=== PATIENT | male | born 2000 | race Two or more races ===

== ENCOUNTER 2020-12-24 20:30 | Inpatient (IN) | payer OTHER ==
[2020-12-24 20:38] VITALS: BMI 33.4
[2020-12-24] MEDS ORDERED: LACTATED RINGERS SOLUTION 1000 ML INFUS.BAG IV ONE (21:02)
[2020-12-24 21:23] LABS: BASO % 0.6 % (0-2.0); EOS % 3.5 % (0-4.5); HEMATOCRIT 44.5 % (35.4-49); HEMOGLOBIN 15.3 GM/dL (11.7-16.9); LYMPH % 22.2 % (8-40); MCH 29.7 pg (25.7-33.7); MCHC 34.4 g/dl (32.0-35.9); MEAN CELL VOLUME 86.3 fl (80-96); MEAN PLT VOLUME 8.2 fl (7.5-11.1); MONO % 6.6 % (3.8-10.2); NEUT % 67.1 % (42.8-82.8); PLATELET COUNT 365 K/MM3 (134-434); RBC 5.16 M/mm3 (4.00-5.60); RDW 13.3 % (11.9-15.9); WHITE BLOOD COUNT 9.6 K/mm3 (4.0-10.0)
[2020-12-24 21:47] LABS: CHLORIDE 104 mmol/L (98-107); SODIUM 136 mmol/L (136-145)
[2020-12-24 21:52] LABS: CALCIUM 9.2 mg/dL (8.5-10.1)
[2020-12-24 21:53] LABS: ANION GAP 6 MMOL/L (8-16); BLOOD UREA NITROGEN 13.2 mg/dL (7-18); CO2 27 mmol/L (21-32); GLUCOSE,RANDOM 90 mg/dL (74-106)
[2020-12-24 21:56] LABS: SGOT/AST 46 U/L (15-37)
[2020-12-24 21:57] LABS: BILIRUBIN,TOTAL 0.8 mg/dL (0.2-1); TOT PROT 8.3 g/dl (6.4-8.2)
[2020-12-24 21:59] LABS: ALK PHOS 103 U/L (45-117)
[2020-12-24 22:05] LABS: SGPT/ALT 28 U/L (13-61)
[2020-12-24 23:06] LABS: INR 1.06 (0.83-1.09); PROTHROMBIN TIME (PATIENT) 12.8 SEC (9.7-13.0)
[2020-12-24 23:09] LABS: ACTIVATED PTT 29.2 SECONDS (25.2-36.5)
[2020-12-25] MEDS ORDERED: LACTATED RINGERS SOLUTION 1000 ML INFUS.BAG IV ONE (02:04)
[2020-12-25 02:48] LABS: METHADONE, UR NEGATIVE ng/ml (CUTOFF=300); OPIATES, URI NEGATIVE ng/ml (CUTOFF=300); URINE BARBITURATES NEGATIVE ng/ml (CUTOFF=200); URINE BENZODIAZEPINES NEGATIVE ng/ml (CUTOFF=200)
[2020-12-25 02:49] LABS: PHENCYCLIDINE,URINE NEGATIVE ng/ml (CUTOFF=25); URINE AMPHETAMINES NEGATIVE ng/ml (CUTOFF=500)
[2020-12-25 02:50] LABS: COCAINE, UR NEGATIVE ng/ml (CUTOFF=300)
[2020-12-25] MEDS ORDERED: ALBUTEROL SO4 2.5/IPRATROPIUM 0.5 INH SOL 3 ML VIAL.NEB. NEB ONE ×2 (05:37→05:48)
[2020-12-25 08:46] LABS: URINE APPEARANCE CLEAR; URINE BILIRUBIN NEGATIVE (NEGATIVE); URINE COLOR YELLOW; URINE GLUCOSE (UA) NEGATIVE (NEGATIVE); URINE KETONE NEGATIVE (NEGATIVE); URINE LEUK ESTERASE NEGATIVE (NEGATIVE); URINE NITRITE NEGATIVE (NEGATIVE); URINE PROTEIN NEGATIVE (NEGATIVE); URINE UROBILINOGEN 0.2 mg/dL (0.2-1.0)
[2020-12-25 09:43] LABS: BASO % 0.7 % (0-2.0); EOS % 4.8 % (0-4.5); HEMATOCRIT 42.3 % (35.4-49); HEMOGLOBIN 14.4 GM/dL (11.7-16.9); LYMPH % 18.2 % (8-40); MCH 29.5 pg (25.7-33.7); MEAN CELL VOLUME 86.6 fl (80-96); MEAN PLT VOLUME 8.3 fl (7.5-11.1); MONO % 6.7 % (3.8-10.2); NEUT % 69.6 % (42.8-82.8); PLATELET COUNT 337 K/MM3 (134-434); RBC 4.89 M/mm3 (4.00-5.60); RDW 13.3 % (11.9-15.9); WHITE BLOOD COUNT 9.1 K/mm3 (4.0-10.0)
[2020-12-25 09:56] LABS: ALBUMIN 4.1 g/dl (3.4-5.0); BLOOD UREA NITROGEN 7.9 mg/dL (7-18)
[2020-12-25 09:59] LABS: BILIRUBIN,TOTAL 0.7 mg/dL (0.2-1); CALCIUM 9.3 mg/dL (8.5-10.1); CREATININE 0.8 mg/dL (0.55-1.3)
[2020-12-25 10:00] LABS: PHOSPHOROUS 3.8 mg/dL (2.5-4.9); TOT PROT 7.6 g/dl (6.4-8.2)
[2020-12-25] MEDS ORDERED: ENOXAPARIN NA (PORCINE) 40 MG/0.4 ML DISP.SYRIN SQ SCH (10:00)
[2020-12-25] MEDS ORDERED: BUDESONIDE/FORMETEROL FUMARATE 80/4.5 mcg INHALER IH SCH (10:00)
[2020-12-25] MEDS ORDERED: ALBUTEROL SO4 2.5/IPRATROPIUM 0.5 INH SOL 3 ML VIAL.NEB. NEB PRN (10:00)
[2020-12-25 10:13] VITALS: BP 150/93; PULSE 118; TEMP 98.6
[2020-12-25 10:56] LABS: HIV INTERPRETATION NEGATIVE (NEGATIVE)
[2020-12-25] MEDS ORDERED: ENOXAPARIN NA (PORCINE) 40 MG/0.4 ML DISP.SYRIN SQ ONE (11:19)
[2020-12-25] MEDS ORDERED: predniSONE 20 MG TABLET (UD) ONE (11:59)
[2020-12-25] MEDS ORDERED: predniSONE 20 MG TABLET (UD) PO SCH (12:00)
== END 2020-12-25 13:29 | disposition home or self-care (01) | DRG 756 ==
LOC: JER 20:30 → JERBED 12-25 03:50
PROVIDERS: ADMIT Internal Medicine; ATTEND Student in an Organized Health Care Education/Training Program
DX: F41.9 Anxiety disorder, unspecified (principal); J45.901 Unspecified asthma with (acute) exacerbation; R06.02 Shortness of breath; R00.0 Tachycardia, unspecified; E66.9 Obesity, unspecified; Z68.33 Body mass index [BMI] 33.0-33.9, adult
CPT/HCPCS: 36415; 71045-TC-FY; 71275-TC; 80053; 80307; 81003; 83735; 84100; 84443; 84484; 85025; 85610; 85730; 87389; 93005; 93010; 93306-TC; 99285-25; C9803; U0003; U0005

== ENCOUNTER 2021-11-14 18:51 | Emergency (ER) | payer OTHER ==
[2021-11-14 19:14] VITALS: BP 129/88; PULSE 82; TEMP 98.1; BMI 32.5
== END 2021-11-14 22:05 | disposition home or self-care (01) ==
LOC: JERFT 18:51
DX: R06.2 Wheezing (principal); Z76.0 Encounter for issue of repeat prescription
CPT/HCPCS: 99281-25

== ENCOUNTER 2021-12-23 05:48 | Emergency (ER) | payer OTHER ==
[2021-12-23 06:05] VITALS: BP 127/84; PULSE 84; TEMP 98.3; BMI 31.0
== END 2021-12-23 07:34 | disposition home or self-care (01) ==
LOC: JER 05:48
DX: J45.909 Unspecified asthma, uncomplicated (principal)
CPT/HCPCS: 99281-25

== ENCOUNTER 2022-01-06 00:17 | Emergency (ER) | payer OTHER ==
[2022-01-06 00:50] VITALS: BP 143/90; PULSE 73; TEMP 98.1; BMI 32.5
[2022-01-06] MEDS ORDERED: ACETAMINOPHEN 500 MG TABLET (FP) PO ONE (02:16)
[2022-01-06] MEDS ORDERED: ACETAMINOPHEN 325 MG TABLET (FP) ONE (02:23)
== END 2022-01-06 03:36 | disposition home or self-care (01) ==
LOC: JER 00:17
DX: N50.812 Left testicular pain (principal)
CPT/HCPCS: 76870-TC; 99283-25

== ENCOUNTER 2022-01-07 21:53 | Emergency (ER) | payer OTHER ==
[2022-01-07 22:17] VITALS: BP 123/90; PULSE 84; BMI 32.5
[2022-01-08 01:39] LABS: URINE APPEARANCE CLOUDY; URINE BILIRUBIN NEGATIVE (NEGATIVE); URINE COLOR YELLOW; URINE GLUCOSE (UA) NEGATIVE (NEGATIVE); URINE KETONE TRACE (NEGATIVE); URINE LEUK ESTERASE NEGATIVE (NEGATIVE); URINE NITRITE NEGATIVE (NEGATIVE); URINE PROTEIN TRACE (NEGATIVE)
== END 2022-01-08 02:20 | disposition home or self-care (01) ==
LOC: JER 21:53
DX: N50.819 Testicular pain, unspecified (principal)
CPT/HCPCS: 81003; 87086; 99283-25

== ENCOUNTER 2022-09-03 22:23 | Emergency (ER) | payer OTHER ==
[2022-09-03 22:36] VITALS: BP 135/77; PULSE 102; RESP 20; TEMP 97.9; BMI 30.4
[2022-09-03] MEDS ORDERED: DEXAMETHASONE LIQUID 0.5 MG/5 ML PO ONE (22:54)
[2022-09-03] MEDS ORDERED: ALBUTEROL SO4 2.5/IPRATROPIUM 0.5 INH SOL 3 ML VIAL.NEB. NEB ONE (23:22)
[2022-09-03] MEDS ORDERED: DEXAMETHASONE SOD PHOSPHATE 10 MG/1 ML VIAL ONE (23:23)
[2022-09-03] MEDS: ALBUTEROL SO4 2.5/IPRATROPIUM 0.5 INH SOL 3 ML VIAL.NEB. NEB SCH (23:31)
[2022-09-04] MEDS: ALBUTEROL SO4 2.5/IPRATROPIUM 0.5 INH SOL 3 ML VIAL.NEB. NEB SCH (00:02)
[2022-09-04] MEDS ORDERED: ALBUTEROL SO4 HFA INHALER IH ONE ×2 (00:16→00:17)
== END 2022-09-04 00:27 | disposition home or self-care (01) ==
LOC: JER 22:23
PROC: 3E0F7GC Introduction of Other Therapeutic Substance into Respiratory Tract, Via Natural or Artificial Opening (ICD-10-PCS; principal; 2022-09-03)
DX: J45.901 Unspecified asthma with (acute) exacerbation (principal)
CPT/HCPCS: 99283-25

== ENCOUNTER 2023-08-21 14:53 | Emergency (ER) | payer OTHER ==
[2023-08-21 15:00] VITALS: BP 134/90; PULSE 95; RESP 19; TEMP 97.8; BMI 31.0
[2023-08-21] MEDS ORDERED: ALBUTEROL SO4 2.5/IPRATROPIUM 0.5 INH SOL 3 ML VIAL.NEB. NEB ONE ×2 (16:28→16:44)
[2023-08-21] MEDS ORDERED: predniSONE 20 MG TABLET (UD) PO ONE (16:29)
[2023-08-21] MEDS ORDERED: BUDESONIDE/FORMETEROL FUMARATE 160/4.5 mcg INHALER IH ONE (16:31)
[2023-08-21] MEDS ORDERED: predniSONE 20 MG TABLET (UD) ONE (16:44)
== END 2023-08-21 17:38 | disposition home or self-care (01) ==
LOC: JERFT 14:53
PROC: 3E0F7GC Introduction of Other Therapeutic Substance into Respiratory Tract, Via Natural or Artificial Opening (ICD-10-PCS; principal; 2023-08-21)
PROC: 3E0F7GC Introduction of Other Therapeutic Substance into Respiratory Tract, Via Natural or Artificial Opening (ICD-10-PCS; 2023-08-21)
DX: R06.02 Shortness of breath (principal); R05.9 Cough, unspecified; J45.909 Unspecified asthma, uncomplicated; Z79.51 Long term (current) use of inhaled steroids
CPT/HCPCS: 71046-TC-FY; 93005; 93010; 99284-25